=== PATIENT | male | born 1980 | race Caucasian/White ===

== ENCOUNTER 2020-05-20 10:14 | Emergency (ER) | payer SELFPAY ==
[2020-05-20 10:43] VITALS: BP 106/52; PULSE 88; RESP 16; TEMP 36.5; O2SAT 99
--- NOTE | 2020-05-20 10:57 | PC.NURSE ---
20/30 w/ B eyes, 20/40 w/ R eye, 20/50 w/ L eye
--- NOTE | 2020-05-20 11:51 | ED.GENADULT ---
HPI - General Adult General Chief complaint: Eye Problems <Omar Reyes PA-C - Last Filed: 05/20/20 11:58> Stated complaint: EYE SWELLING <Omar Reyes PA-C - Last Filed: 05/20/20 11:58> Time Seen by Provider: 05/20/20 10:19 <Omar Reyes PA-C - Last Filed: 05/20/20 11:58> Source: patient and family <Omar Reyes PA-C - Last Filed: 05/20/20 11:58> Mode of arrival: ambulatory <Omar Reyes PA-C - Last Filed: 05/20/20 11:58> Limitations: no limitations <Omar Reyes PA-C - Last Filed: 05/20/20 11:58> History of Present Illness HPI narrative: Patient is a 39-year-old male who presents with a few days duration of irritation the left eye started with conjunctival injection and now has some swelling of the eyelid patient notes irritation denies visual changes injury trauma or URI symptoms. Patient presents in no distress resting comfortably is not tried anything for relief. <Omar Reyes PA-C - Last Filed: 05/20/20 11:58> Related Data Allergies/adverse reactions: Allergies Allergy/AdvReac Type Severity Reaction Status Date / Time No Known Allergies Allergy Verified 05/20/20 10:45 <Omar Reyes PA-C - Last Filed: 05/20/20 11:58> Review of Systems Review of Systems: All systems reviewed & are unremarkable except as noted in HPI and below <Omar Reyes PA-C - Last Filed: 05/20/20 11:58> PMFSH Social History Social History: Social History Gender identity (if verbalized by the patient): Male <DANIS Larios Last Filed: 05/20/20 11:58> Exam Narrative: Exam Narrative: GENERAL: Well-appearing, well-nourished, and in no acute distress. HEAD: Normocephalic, atraumatic. EYES: PERRLA and EOMI. negative fluorescein uptake. No foreign bodies noted. Eye irrigated with saline. Left eye with conjunctival injection some matting patient also has some slight edema of the upper eyelid ENT: Nares clear, no rhinorrhea or epistaxis. Mucous membranes moist. Oropharynx without tonsillar hypertrophy exudate or other lesions. Bilateral TMs pearly whittington nonbulging EXTREMITIES: Normal range of motion. No edema. SKIN: Warm, dry, no rash. NEURO: No focal deficits. Alert and oriented x3. PSYCH: Normal mood and affect. <Omar Reyes PA-C - Last Filed: 05/20/20 11:58> Course Course Emergency Course: Patient in the room at this time aware of case findings treatment plan and diagnosis agreeing to follow-up as directed or to return if symptoms worsen or concerns <Omar Reyes PA-C - Last Filed: 05/20/20 11:58> Vital Signs Vital signs: Vital Signs Temperature 97.7 F 05/20/20 10:43 Pulse Rate 88 05/20/20 10:43 Respiratory Rate 16 05/20/20 10:43 Blood Pressure 106/52 L 05/20/20 10:43 Pulse Oximetry 99 05/20/20 10:43 Temperature 97.7 F 05/20/20 10:43 Pulse Rate 82 05/20/20 12:18 Respiratory Rate 20 05/20/20 12:18 Blood Pressure 106/52 L 05/20/20 10:43 Pulse Oximetry 100 05/20/20 12:18 <Omar Reyes PA-C - Last Filed: 05/20/20 11:58> Vital Signs Temperature 97.7 F 05/20/20 10:43 Pulse Rate 88 05/20/20 10:43 Respiratory Rate 16 05/20/20 10:43 Blood Pressure 106/52 L 05/20/20 10:43 Pulse Oximetry 99 05/20/20 10:43 Temperature 97.7 F 05/20/20 10:43 Pulse Rate 82 05/20/20 12:18 Respiratory Rate 20 05/20/20 12:18 Blood Pressure 106/52 L 05/20/20 10:43 Pulse Oximetry 100 05/20/20 12:18 <Trinh Novak MD - Last Filed: 05/20/20 12:24> Medical Decision Making MDM Narrative Medical decision making narrative: Patient with conjunctivitis will be discharged home provided with reasons to return patient felt appropriate for outpatient reevaluation provided with ophthalmology follow-up and reasons to return will be treated for conjunctivitis <Omar Reyes PA-C - Last Filed: 05/20/
[2020-05-20 12:18] VITALS: PULSE 82; RESP 20; O2SAT 100
== END 2020-05-20 12:19 | disposition home or self-care (01) ==
PROVIDERS: Emergency Provider Emergency Medicine
DX: H10.9 Unspecified conjunctivitis (principal)
CPT/HCPCS: 99283; A9270

== ENCOUNTER 2020-06-25 18:45 | Emergency (ER) | payer SELFPAY ==
--- NOTE | ~2020-06-25 | XR_ITS ---
EXAMINATION: XR finger 1st RT min 2V EXAM DATE: 06/25/2020 19:09 INDICATION: Initial encounter following injury, with pain of the right 1st finger. TECHNIQUE: Right 1st finger frontal, lateral and oblique projections obtained and reviewed. There is no prior study for comparison. FINDINGS: There are no acute right 1st finger fractures or dislocations identified. There is no subc utaneous gas. There is soft tissue swelling overlying the interphalangeal joint. There are no radio paque foreign bodies. IMPRESSION: 1. Right 1st finger exam without acute osseous findings. 2. Soft tissue swelling. Reviewed, dictated and finalized at location A.
[2020-06-25 18:46] VITALS: PULSE 103; RESP 18; TEMP 36.8; O2SAT 99
--- NOTE | 2020-06-25 19:17 | ED.UPPEXIN ---
HPI - Extremity Injury (Upper) General Chief Complaint: Extremity Injury, Upper <DANIS Fuentes Last Filed: 06/25/20 20:38> Stated Complaint: right thumb pain <DANIS Fuentes Last Filed: 06/25/20 20:38> Time Seen by Provider: 06/25/20 18:53 <DANIS Fuentes Last Filed: 06/25/20 20:38> Source: patient <DANIS Fuentes Last Filed: 06/25/20 20:38> Mode of arrival: ambulatory <DANIS Fuentes Last Filed: 06/25/20 20:38> Limitations: no limitations <DANIS Fuentes Last Filed: 06/25/20 20:38> History of Present Illness HPI narrative: This is a 39-year-old male that presents to the emergency department for right first finger injury sustained this morning. Reports he got his finger caught between 2 logs that he was trying to cut. Reports decreased range of motion in the thumb due to pain. Reports a laceration to the thumb. Reports he is up-to-date on tetanus. Denies numbness. <DANIS Fuentes Last Filed: 06/25/20 20:38> Related Data Home Medications: Home Medications Medication Instructions Recorded Confirmed No Home Medications 06/25/20 06/25/20 <DANIS Fuentes Last Filed: 06/25/20 20:38> Allergies/Adverse Reactions: Allergies Allergy/AdvReac Type Severity Reaction Status Date / Time No Known Allergies Allergy Verified 06/25/20 18:51 <DANIS Fuentes Last Filed: 06/25/20 20:38> Review of Systems Review of Systems: Narrative: CONSTITUTIONAL: Denies fever SKIN: Reports laceration MUSCULOSKELETAL: Reports joint pain, and myalgia. NEUROLOGIC: Denies numbness <DANIS Fuentes Last Filed: 06/25/20 20:38> All systems reviewed & are unremarkable except as noted in HPI and below <DANIS Fuentes Last Filed: 06/25/20 20:38> [facility] Past Medical History Medical History: Medical History (Updated 06/25/20 @ 20:38 by Zaida Dietrich PA-C) No active medical problems <Zaida Dietrich PA-C - Last Filed: 06/25/20 20:38> Social History Social History: Social History (Updated 06/25/20 @ 19:21 by Zaida Dietrich PA-C) Substance use: never Gender identity (if verbalized by the patient): Male <Zaida Dietrich PA-C - Last Filed: 06/25/20 20:38> Exam Narrative: Exam Narrative: GENERAL: Well-appearing, well-nourished, and in no acute distress. HEAD: Normocephalic, atraumatic. EYES: EOMI. EXTREMITIES: Decreased range of motion in the right first finger due to pain. Mild edema to the 1st interphalangeal joint with overlying superficial laceration well approximated on the dorsal surface SKIN: Warm, dry, no rash. NEURO: No focal deficits. Alert and oriented x3. PSYCH: Normal mood and affect <Zaida Dietrich PA-C - Last Filed: 06/25/20 20:38> Course Vital Signs Vital signs: Vital Signs Temperature 98.2 F 06/25/20 18:46 Pulse Rate 103 H 06/25/20 18:46 Respiratory Rate 18 06/25/20 18:46 Pulse Oximetry 99 06/25/20 18:46 Temperature 99.0 F 06/25/20 20:56 Pulse Rate 92 06/25/20 20:56 Respiratory Rate 20 06/25/20 20:56 Blood Pressure 128/78 06/25/20 20:56 Pulse Oximetry 100 06/25/20 20:56 <Zaida Dietrich PA-C - Last Filed: 06/25/20 20:38> Vital Signs Temperature 98.2 F 06/25/20 18:46 Pulse Rate 103 H 06/25/20 18:46 Respiratory Rate 18 06/25/20 18:46 Pulse Oximetry 99 06/25/20 18:46 Temperature 99.0 F 06/25/20 20:56 Pulse Rate 92 06/25/20 20:56 Respiratory Rate 20 06/25/20 20:56 Blood Pressure 128/78 06/25/20 20:56 Pulse Oximetry 100 06/25/20 20:56 <Rox Fontana MD - Last Filed: 06/25/20 21:54> Procedures Laceration Laceration 1: Date: 06/25/20 <Zaida Dietrich PA-C - Last Filed: 06/25/20 20:38> Time: 20:34 <Zaida Dietrich PA-C - Last Filed: 06/25/20 20:38> Site: hand <Zaida Dietrich PA-C - Last Filed: 06/25/20 20:38
--- NOTE | 2020-06-25 19:20 | PC.NURSE ---
pt updated that we are waiting on xray to result - ERP will notify him of his results. no current needs.
[2020-06-25 20:56] VITALS: BP 128/78; PULSE 92; RESP 20; TEMP 37.2; O2SAT 100
== END 2020-06-25 20:58 | disposition home or self-care (01) ==
PROVIDERS: Emergency Provider General Practice
DX: S67.01XA Crushing injury of right thumb, initial encounter (principal); S61.011A Laceration without foreign body of right thumb without damage to nail, initial encounter; W23.1XXA Caught, crushed, jammed, or pinched between stationary objects, initial encounter
CPT/HCPCS: 12001; 73140; 99283

== ENCOUNTER 2021-04-24 17:04 | Emergency (ER) | payer SELFPAY ==
--- NOTE | ~2021-04-24 | XR_ITS ---
EXAMINATION: XR hand RT min 3V DATE: 04/24/2021 17:32 INDICATION: Right hand injury after punching a wall. TECHNIQUE: Posteroanterior, oblique and lateral views of the right hand were obtained. COMPARISON: None. FINDINGS: Transverse extra articular fracture at the distal neck of the right fifth metacarpal (boxer's fractur e) with 40 degree palmar/radial angulation. No other acute fractures identified. 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 Joint spaces are normal. IMPRESSION: 1. 43 palmar/radial angulation of a nondisplaced boxer's fracture at the distal neck of the right fif th metacarpal. Reviewed, dictated and finalized at location A. IMPRESSION: 1. 43 palmar/radial angulation of a nondisplaced boxer's fracture at the distal neck of the right fifth metacarpal.
[2021-04-24 17:30] VITALS: BP 134/69; PULSE 68; RESP 16; TEMP 36.6; O2SAT 100
[2021-04-24 18:16] VITALS: BP 134/69; PULSE 68; RESP 16; TEMP 36.3; O2SAT 98
--- NOTE | 2021-04-24 18:19 | PC.NURSE ---
ERP Cr at bedside, pt refusing to have cr attempt to manipulate the finger into place. Cr will order splint and send to ortho.
--- NOTE | 2021-04-24 18:23 | ED.UPPEXIN ---
HPI - Extremity Injury (Upper) General Chief Complaint: Extremity Injury, Upper Stated Complaint: Fx hand or broke it Time Seen by Provider: 04/24/21 18:36 Source: patient Mode of arrival: ambulatory Limitations: no limitations History of Present Illness HPI narrative: Patient is a 40-year-old male who presents complaining of right hand pain. He reports punching a shed last week instead of punching his neighbor. He reports increased pain over the past week. Deformity and edema noted to right dorsal hand. Patient denies taking any [id number] pain medication prior to arrival. Patient denies other injuries. complaint: injury to: right Related Data Home Medications Medication Instructions Recorded Confirmed No Home Medications 06/25/20 06/25/20 Allergies Allergy/AdvReac Type Severity Reaction Status Date / Time No Known Allergies Allergy Verified 04/24/21 18:18 Review of Systems Review of Systems: Narrative: CONSTITUTIONAL: Denies fever, chills, or sweats. EYES: Denies visual changes, redness, or discharge. ENT: Denies rhinorrhea, congestion, sore throat, or otalgia. CARDIOVASCULAR: Denies chest pain, palpitations, or edema. RESPIRATORY: Denies cough or dyspnea. GASTROINTESTINAL: Denies abdominal pain, nausea, vomiting, or diarrhea. GENITOURINARY: Denies dysuria or hematuria. SKIN: Denies rash or itching. MUSCULOSKELETAL: Right hand pain NEUROLOGIC: Denies headache, numbness, dizziness, or weakness. PSYCHIATRIC: Denies anxiety or depression. PMFSH Past Medical History Medical History No active medical problems Social History Social History (Updated 04/24/21 @ 18:26 by ILSA Celaya) Smoking status: Former smoker Alcohol intake: current Alcohol use details: Occasional Substance use: never Gender identity (if verbalized by the patient): Male Sexual Orientation (if Verbalized by the Patient): Straight or Heterosexual Comments At the time of signature, I have reviewed and agree with nursing past medical, surgical, social, and family history unless otherwise noted. Please see nursing chart for further information. There is no relevant family history pertinent to the presenting complaint. Exam Narrative: Exam Narrative: GENERAL: Well-appearing, well-nourished, and in no acute distress. HEAD: Normocephalic, atraumatic. EYES: EOMI. No redness or drainage. Conjunctiva are normal. ENT: Mucous membranes pink and moist. CHEST: No respiratory distress. Clear to auscultation. HEART: Regular rate and rhythm. No murmur appreciated. Normal peripheral pulses. EXTREMITIES: Visible deformity to right fifth metacarpal. Edema noted. SKIN: Warm, dry, no rash. NEURO: No focal deficits. Alert and oriented x3. Gait steady. PSYCH: Normal affect. No signs of depression or anxiety. Course Course Emergency Course: Discussed with patient the need to attempt reduction lateral of metacarpal due to angulation. Patient declined. Discussed with patient that he could have loss of function in hand due to the length of time the injury occurred and angulation. Patient is aware and continues to decline attempted reduction. Discussed with Dr. Rose who agrees with plan of care for splinting and follow up with orthopedics. Vital Signs Vital signs: Vital Signs Temperature 36.6 C 04/24/21 17:30 Pulse Rate 68 04/24/21 17:30 Respiratory Rate 16 04/24/21 17:30 Blood Pressure 134/69 04/24/21 17:30 Pulse Oximetry 100 04/24/21 17:30 Temperature 36.3 C L 04/24/21 18:16 Pulse Rate 68 04/24/21 18:16 Respiratory Rate 16 04/24/21 18:16 Blood Pressure 134/69 04/24/21 18:16 Pulse Oximetry 98 04/24/21 18:16 Reviewed. Patient has been instructed to follow-up with his PCP regarding his blood pressure. Procedures Orthopedic Splinting/Casting Injury #1: Splinting/Casting Date: 04/24/21 Splinting/Casting Time: 18:5
--- NOTE | 2021-04-24 18:25 | PC.NURSE ---
MONICA Salinas, PUTTY REMOVER at bedside to apply cock up on right extremity.
== END 2021-04-24 19:44 | disposition home or self-care (01) ==
PROVIDERS: Emergency Provider Nurse Practitioner
DX: S62.366A Nondisplaced fracture of neck of fifth metacarpal bone, right hand, initial encounter for closed fracture (principal); Z87.891 Personal history of nicotine dependence; R03.0 Elevated blood-pressure reading, without diagnosis of hypertension; W22.09XA Striking against other stationary object, initial encounter
CPT/HCPCS: 29125; 73130; 99284

== ENCOUNTER 2022-01-21 18:03 | Emergency (ER) | payer SELFPAY ==
[2022-01-21] VITALS (8 sets, daily range): BP systolic 132; BP diastolic 72; PULSE 64–80; RESP 14–19; TEMP 36.4; O2SAT 97–100
--- NOTE | ~2022-01-21 | XR_ITS ---
EXAMINATION: XR chest 2V DATE: 01/21/2022 18:26 INDICATION: Chest pain and shortness of breath TECHNIQUE: PA and lateral views of the chest were obtained. COMPARISON: Chest radiograph dated 09/02/2015 FINDINGS: Lungs remain hyperexpanded but clear with no focal airspace opacities, pulmonary edema, pleural effus ion or pneumothorax. The cardiomediastinal silhouette is normal. Mild thoracic spondylosis with chron ic mild anterior wedging of a couple lower thoracic vertebra. IMPRESSION: 1. No acute cardiopulmonary disease. Reviewed, dictated and finalized at location A. UTER RECYCLING WORKER
--- NOTE | ~2022-01-21 | CT_ITS ---
EXAMINATION: CTA chest PE protocol DATE: 01/21/2022 20:34 INDICATION: Chest pain and shortness of breath. TECHNIQUE: Computed tomography (CT) pulmonary angiogram of the chest was performed with 100 mL Omnipa que-350 intravenous contrast. Additional 3D reconstructions utilizing coronal maximum intensity proje ction (MIP) were performed. Automated exposure control and iterative reconstruction technique were em ployed. The dose-length product was 207.15 mGy-cm. COMPARISON: None FINDINGS: Good contrast opacification of the pulmonary arteries. There is mild streak artifact from dense contr ast in the superior vena cava and right atrium. Mild scattered respiratory motion artifact which does not significantly limit evaluation. No pulmonary embolism. No pneumonia, pulmonary edema or pleural effusion. Heart size is normal. No pericardial effusion. 2.4 cm exophytic right renal cyst. Visualize d upper abdomen is otherwise unremarkable. Mild thoracic spondylosis. Likely physiologic mild anterio r wedging at T11 and T12. IMPRESSION: 1. No pulmonary embolism or other acute cardiopulmonary disease. Reviewed, dictated and finalized at location A. OR NET DEVELOPER
--- NOTE | 2022-01-21 18:17 | ECG_ITS ---
Measurements Intervals [place] Rate: 73 P: 66 TN: 143 QRS: 82 QRSD: 90 T: 69 QT: 357 QTc: 394 Interpretive Statements SINUS RHYTHM NORMAL ECG NO PREVIOUS ECG AVAILABLE FOR COMPARISON Electronically Signed On 01-22-2022 13:46:54 PRODUCT EXAMINER by Jimmie Diaz M.D.
[2022-01-21 19:05] LABS: Basophils Percent Auto 0.5 % (0.2-1.2); Eosinophils Absolute Auto 0.2 K/mm3 (0-0.3); Eosinophils Percent Auto 2.7 % (0-4.4); Hematocrit 38.7 % (42.0-52.0); Hemoglobin 13.6 g/dL (14.0-18.0); Immature Granulocyte Absolute 0.02 K/mm3 (0.00-0.031); Immature Granulocyte Percent A 0.3 % (0-0.5); Lymphocytes Absolute Auto 1.59 K/mm3 (0.9-3.2); Lymphocytes Percent Auto 26.7 % (18.3-44.2); Mean Corpuscular HGB Conc 35.1 g/dl (32-36); Mean Corpuscular Hemoglobin 30.2 pg (26-34); Mean Platelet Volume 10.7 fl (7.4-10.4); Monocytes Absolute Auto 0.7 K/mm3 (0.1-0.6); Monocytes Percent Auto 11.1 % (2.6-8.5); Neutrophils Absolute Auto 3.5 K/mm3 (1.3-6.7); Neutrophils Percent Auto 58.7 % (45.5-73.1); Platelet Count Result 171 k/mm3 (150-375); Red Cell Distribution Width 12.4 % (11.5-14.5)
[2022-01-21 19:45] LABS: INR 1.1; Prothrombin Time 13.9 Seconds (11.1-14.7)
[2022-01-21 19:46] LABS: Partial Thromboplastin Time 32.4 SECONDS (22.3-36.8)
[2022-01-21 19:48] LABS: Alanine Aminotransferase 15 U/L (4-50); Albumin Level 3.9 g/dL (3.5-5.1); Alkaline Phosphatase 56 U/L (38-126); Anion Gap 4 mmol/L (8-16); Aspartate Amino Transferase 21 U/L (17-59); Bilirubin,Total 0.4 mg/dL (0.2-1.3); Blood Urea Nitrogen 14 mg/dL (9-20); Calcium 8.7 mg/dL (8.4-10.2); Carbon Dioxide 30 mmol/L (22-30); Chloride 102 mmol/L (98-107); Estimated CRCL calculation 103 ml/min; Estimated Glomerular Filt Rate > 60; Glucose 107 mg/dL (65-110); Lipase 63 U/L (23-300); Potassium 3.7 mmol/L (3.4-5.0); Sodium 136 mmol/L (137-145)
[2022-01-21 19:49] LABS: D Dimer 0.59 ug/mL (<0.48)
[2022-01-21 20:00] LABS: Troponin I < 0.012 ng/mL (0.000-0.034)
[2022-01-21 20:14] LABS: SARS-CoV-2 RNA PCR Negative
--- NOTE | 2022-01-21 20:19 | ED.SOB ---
HPI - SOB/Dyspnea General Chief Complaint: Shortness of Breath/Dyspnea Stated Complaint: dyspnea Time Seen by Provider: 01/21/22 19:02 Source: patient and RN notes reviewed Mode of arrival: ambulatory Limitations: no limitations History of Present Illness HPI Narrative: This is 41 year old male who presents for substernal chest pain and shortness of breath. Patient states he woke up this morning feeling unwell. He states he is hoarse. He is having intermittent , nonradiating substernal chest pain. THis pain occurs mostly when he coughs. He also has intermittent shortness of breath and dry cough. He denies nausea, vomiting, fever, chills, headache, sore throat . He denies any sick contacts. Related Data Home Medications Medication Instructions Recorded Confirmed No Home Medications 06/25/20 06/25/20 Allergies Allergy/AdvReac Type Severity Reaction Status Date / Time No Known Allergies Allergy Verified 04/24/21 18:18 Review of Systems Review of Systems: All systems reviewed & are unremarkable except as noted in HPI and below PMFSH Past Medical History Medical History No active medical problems Social History Social History (Updated 04/24/21 @ 18:26 by Toya Salinas, ILSA) Smoking status: Former smoker Alcohol intake: current Alcohol use details: Occasional Substance use: never Gender identity (if verbalized by the patient): Male Sexual Orientation (if Verbalized by the Patient): Straight or Heterosexual Exam Narrative: GENERAL: Well-appearing, well-nourished, and in no acute distress. HEAD: Normocephalic, atraumatic EYES: PERRLA and EOMI, conjunctiva clear without discharge EARS: TM's clear bilaterally without erythema or dullness NOSE: Nares clear, no rhinorrhea or epistaxis THROAT:Mucous membranes moist, Oropharynx normal without erythema, exudate, peritonsillar swelling or fluctuance NECK: Supple, without lymphadenopathy or mass RESPIRATORY: No respiratory distress, Airway patent, Respirations non-labored, Clear to auscultation without rales, rhonchi or wheeze HEART: Regular rate and rhythm. No murmur heard. Normal peripheral pulses. ABDOMEN: Soft, nontender, nondistended, normal active bowel sounds. No masses. No rebound or guarding, No organomegaly. EXTREMITIES: No edema, normal strength with full range of motion. SKIN: Warm, dry, normal color without rash NEURO: Alert and oriented x3. CN 2-12 grossly intact. No focal deficits. PSYCH: Normal mood and affect. Course Reevaluation(s) Reevaluation #1: I Discussed with patient evaluation is unremarkable. Likely has viral URI. Date: 01/21/22 Time: 21:02 Vital Signs Vital signs: Vital Signs Temperature 97.6 F 01/21/22 18:12 Pulse Rate 80 01/21/22 18:12 Respiratory Rate 18 01/21/22 18:12 Blood Pressure 132/72 01/21/22 18:12 Pulse Oximetry 98 01/21/22 18:12 Temperature 97.6 F 01/21/22 18:12 Pulse Rate 74 01/21/22 20:55 Respiratory Rate 18 01/21/22 20:55 Blood Pressure 132/72 01/21/22 18:12 Pulse Oximetry 99 01/21/22 20:55 MDM - SOB/Dyspnea Lab Data Attestation: I reviewed the patient's lab results. Result diagrams: 01/21/22 18:56 01/21/22 19:31 Labs: Lab Results 01/21/22 01/21/22 01/21/22 Range/Units 18:56 18:56 19:31 WBC 6.0 (4.5-10.0) K/mm3 RBC 4.50 L (4.6-6.20) M/mm3 Hgb 13.6 L (14.0-18.0) g/dL Hct 38.7 L (42.0-52.0) % MCV 86.0 (80-100) fl MCH 30.2 (26-34) pg MCHC 35.1 (32-36) g/dl RDW 12.4 (11.5-14.5) % Plt Count 171 (150-375) k/mm3 MPV 10.7 H (7.4-10.4) fl Immature Gran % (Auto) 0.3 (0-0.5) % Neut % (Auto) 58.7 (45.5-73.1) % Lymph % (Auto) 26.7 (18.3-44.2) % [place] % (Auto) 11.1 H (2.6-8.5) % Eos % (Auto) 2.7 (0-4.4) % Baso % (Auto) 0.5 (0.2-1.2) % Lymph # (Auto) 1.59 (0.9-3.2) K/mm3 Mon
== END 2022-01-21 21:14 | disposition home or self-care (01) ==
PROVIDERS: Emergency Medicine; Emergency Provider General Practice
DX: Z20.822 Contact with and (suspected) exposure to COVID-19 (principal); J06.9 Acute upper respiratory infection, unspecified
CPT/HCPCS: 36415; 71046; 71275; 80053; 83690; 84484; 85025; 85380; 85610; 85730; 87081; 87804; 87880; 93005; 99284; C9803; Q9967; U0003; U0005

== ENCOUNTER 2024-08-02 12:02 | Emergency (ER) | payer SELFPAY ==
--- NOTE | ~2024-08-02 | CT_ITS ---
EXAMINATION:CT diagnostic chest wo con DATE: 08/02/2024 13:02 INDICATION: Rib pain. TECHNIQUE: Computed tomography (CT) of the chest was performed without intravenous contrast. Automate d exposure control and iterative reconstruction technique were employed. The dose-length product (DLP ) was 252.51 mGy-cm. COMPARISON: Chest CT 01/21/2022 FINDINGS: There is no pneumonia or pleural effusion. The heart size is normal. No pericardial effusio n. There is a 3.0 cm cyst in right kidney. There is mild thoracic spondylosis. There is mild chronic anterior wedging of T11-L1 vertebral bodies. There are old healed rib fractures bilaterally. IMPRESSION: 1. No acute rib fracture. Reviewed, dictated and finalized at location A. IMPRESSION: 1. No acute rib fracture.
[2024-08-02 12:10] VITALS: BP 115/73; PULSE 91; RESP 16; TEMP 36.3; O2SAT 98
[2024-08-02 12:32] LABS: Basophils Percent Auto 0.4 % (0.2-1.2); Eosinophils Absolute Auto 0.1 K/mm3 (0-0.3); Eosinophils Percent Auto 1.4 % (0-4.4); Hematocrit 38.9 % (42.0-52.0); Hemoglobin 13.4 g/dL (14.0-18.0); Immature Granulocyte Absolute 0.01 K/mm3 (0.00-0.031); Immature Granulocyte Percent A 0.1 % (0-0.5); Lymphocytes Absolute Auto 1.75 K/mm3 (0.9-3.2); Lymphocytes Percent Auto 25.3 % (18.3-44.2); Mean Corpuscular HGB Conc 34.4 g/dl (32-36); Mean Corpuscular Hemoglobin 30.5 pg (26-34); Mean Corpuscular Volume 88.4 fl (80-100); Mean Platelet Volume 11.1 fl (7.4-10.4); Monocytes Absolute Auto 0.4 K/mm3 (0.1-0.6); Monocytes Percent Auto 6.4 % (2.6-8.5); Neutrophils Absolute Auto 4.6 K/mm3 (1.3-6.7); Neutrophils Percent Auto 66.4 % (45.5-73.1); Platelet Count Result 148 k/mm3 (150-375); Red Cell Distribution Width 12.2 % (11.5-14.5); White Blood Count 6.9 K/mm3 (4.5-10.0)
--- NOTE | 2024-08-02 12:33 | PC.NURSE ---
pt made aware that urine sample is needed. pt unable to go at this time. decline straight cath. pt will hit call button when needs to go.
[2024-08-02 12:46] LABS: Alanine Aminotransferase 15 U/L (6-50); Albumin Level 3.9 g/dL (3.5-5.1); Alkaline Phosphatase 46 U/L (38-126); Anion Gap 11 mmol/L (4-12); Aspartate Amino Transferase 17 U/L (17-59); Bilirubin,Total 0.3 mg/dL (0.2-1.3); Blood Urea Nitrogen 18 mg/dL (9-20); Calcium 9.2 mg/dL (8.4-10.2); Carbon Dioxide 26 mmol/L (22-30); Chloride 103 mmol/L (98-107); Estimated CRCL calculation 72 ml/min; Estimated Glomerular Filt Rate > 60; Glucose 94 mg/dL (65-110); Lipase 85 U/L (23-300); Potassium 3.9 mmol/L (3.4-5.0); Sodium 140 mmol/L (137-145)
[2024-08-02] MEDS: KETOROLAC 30 MG/ML VIAL (*BKC) IV PUSH (12:56)
--- NOTE | 2024-08-02 13:31 | ED.ABDPAIN ---
HPI - Abdominal Pain General Chief Complaint: Abdominal Pain Stated Complaint: RLQ pain Time Seen by Provider: 08/02/24 12:18 Source: patient Mode of arrival: ambulatory Limitations: no limitations History of Present Illness HPI narrative: this is a 43-year-old male who presents to the ED with chief complaint of right-sided abdominal/rib pain over the past 2 days. No known injury. Denies fevers, chills, associated nausea, vomiting, diarrhea. Reports normal bowel movements. 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 States that he is doing a lot of physical labor and mowing on a daily basis but does not have any specific injuries that he can remember. Reports the pain really isn't getting worse but has not got better. It is worse with certain movements. Denies urinary symptoms such as dysuria, hematuria or frequency. Denies pain in the flanks. He is able to point to the inferior ribs where the pain hurts the most. Related Data Allergies Allergy/AdvReac Type Severity Reaction Status Date / Time No Known Allergies Allergy Verified 08/02/24 12:35 Review of Systems Review of Systems: All systems as dictated in [facility] Past Medical History Medical History No active medical problems Social History Social History (Updated 04/24/21 @ 18:26 by Toya Salinas, ILSA) Smoking status: Former smoker Alcohol intake: current Alcohol use details: Occasional Substance use: never Gender identity (if verbalized by the patient): Male Sexual Orientation (if Verbalized by the Patient): Straight or Heterosexual Exam Narrative: GENERAL: Well-appearing, well-nourished, and in no acute distress. HEAD: Normocephalic, atraumatic. EYES: PERRLA and EOMI. ENT: Nares clear, no rhinorrhea or epistaxis. Mucous membranes moist. Oropharynx without tonsillar hypertrophy exudate or other lesions. NECK: Supple. No adenopathy or masses. CHEST: No respiratory distress. Clear to auscultation. No wheezes rales or rhonchi. point tenderness to the right inferior most ribs. HEART: Regular rate and rhythm. No murmur heard. Normal peripheral pulses. ABDOMEN: Soft, grossly nontender, nondistended, normal active bowel sounds. negative flank tenderness bilaterally MSK: Normal range of motion. No edema. SKIN: Warm, dry, no rash. NEURO: Alert and oriented x4. No focal deficits. PSYCH: Normal mood and affect. Course Vital Signs Vital signs: Vital Signs Temperature 97.4 F L 08/02/24 12:10 Pulse Rate 91 08/02/24 12:10 Respiratory Rate 16 08/02/24 12:10 Blood Pressure 115/73 08/02/24 12:10 Pulse Oximetry 98 08/02/24 12:10 Oxygen Delivery Room Air 08/02/24 12:10 Temperature 97.4 F L 08/02/24 12:10 Pulse Rate 91 08/02/24 12:10 Respiratory Rate 16 08/02/24 12:10 Blood Pressure 115/73 08/02/24 12:10 Pulse Oximetry 98 08/02/24 12:10 Oxygen Delivery Room Air 08/02/24 12:10 MDM - Abdominal Pain MDM Narrative Medical decision making narrative: This is a 43-year-old male who presents to the ED with chief complaint of right lateral chest wall pain without known injury. Vitals are normal. Exam shows focal tenderness to the right lateral inferior most ribs. The area has point tenderness and there is no flank or abdominal tenderness. Lab work is unremarkable overall. Chest CT without con: IMPRESSION: 1. No acute rib fracture.. Patient was given Toradol here with moderate relief. Informed of the there was no rib fracture and may be consistent with pulled muscle or bruised rib. Pt will be discharged in stable condition. Return precautions given and supportive measures discussed. Pt is understanding and agreeable with plan for discharge and follow-up with PCP. Lab Data 08/02/24 12:26 08/02/24 12:26 Labs: Lab Results 08/02/24 Range/Units 12:26 WBC 6.9
== END 2024-08-02 14:25 | disposition home or self-care (01) ==
PROVIDERS: Emergency Provider Physician Assistant
DX: R07.89 Other chest pain (principal); Z87.891 Personal history of nicotine dependence
CPT/HCPCS: 36415; 71250; 80053; 83690; 85025; 96374; 99284; J1885

== ENCOUNTER 2024-11-20 16:58 | Emergency (ER) | payer SELFPAY ==
--- NOTE | ~2024-11-20 | XR_ITS ---
CHEST RADIOGRAPH, PA AND LATERAL CLINICAL HISTORY: cough, congestion . COMPARISON: 01/21/2022 TECHNIQUE: PA and lateral views of the chest. FINDINGS The cardiomediastinal silhouette is unremarkable. The lungs are clear. Visualized osseous structures and soft tissues are unremarkable. IMPRESSION: No focal infiltrate or effusion. If clinical suspicion persists, cross-sectional imaging (noncontrast enhanced CT examination of the c hest) is suggested for further evaluation. Reviewed, dictated and finalized at location A. CUTTER IMPRESSION: No focal infiltrate or effusion. If clinical suspicion persists, cross-sectional imaging (noncontrast enhanced C T examination of the chest) is suggested for further evaluation.
[2024-11-20 17:23] VITALS: BP 115/75; PULSE 95; RESP 17; TEMP 36.6; O2SAT 100
--- NOTE | 2024-11-20 17:26 | ED.URI ---
HPI - URI/Sore Throat General Chief Complaint: Upper Respiratory Infection <Zaida Dietrich PA-C - Last Filed: 11/21/24 14:48> Stated Complaint: COUGH,CONGESTION X2WK <DANIS Fuentes Last Filed: 11/21/24 14:48> Time Seen by Provider: 11/20/24 17:26 <Zaida Dietrich PA-C - Last Filed: 11/21/24 14:48> Focused HPI: This is a 44 year old male that presents to the ER for cough, congestion, shortness of breath. Ongoing over the last 2 weeks. Reports pain with coughing. GENERAL: Well-appearing, well-nourished, and in no acute distress. HEAD: Normocephalic, atraumatic. CHEST: Clear to auscultation. ?No respiratory distress. HEART: Regular rate and rhythm.? NEURO: ?Alert and oriented x3. Patient screened in triage and initial orders placed.? ?Additional care and disposition to be based upon?diagnostic testing and treatment. <Zaida Dietrich PA-C - Last Filed: 11/21/24 14:48> Source: patient <DANIS Jenkins Last Filed: 11/20/24 20:15> Mode of arrival: ambulatory <DANIS Jenkins Last Filed: 11/20/24 20:15> Limitations: no limitations <DANIS Jenkins Last Filed: 11/20/24 20:15> History of Present Illness HPI Narrative: Agree with triage note above <DANIS Jenkins Last Filed: 11/20/24 20:15> Related Data Allergies/Adverse Reactions: Allergies Allergy/AdvReac Type Severity Reaction Status Date / Time No Known Allergies Allergy Verified 08/02/24 12:35 <DANIS Fuentes Last Filed: 11/21/24 14:48> Review of Systems Review of Systems: All systems as dictated in HPI <DANIS Jenkins Last Filed: 11/20/24 20:15> PMFSH Past Medical History Medical History: Medical History No active medical problems <Zaida Dietrich PA-C - Last Filed: 11/21/24 14:48> Social History Social History: Social History (Updated 04/24/21 @ 18:26 by Toya Salinas, [facility]) Smoking status: Former smoker Alcohol intake: current Alcohol use details: Occasional Substance use: never Gender identity (if verbalized by the patient): Male Sexual Orientation (if Verbalized by the Patient): Straight or Heterosexual <Zaida Dietrich PA-C - Last Filed: 11/21/24 14:48> Exam Narrative: GENERAL: Well-appearing, well-nourished, and in no acute distress. HEAD: Normocephalic, atraumatic. EYES: PERRLA and EOMI. ENT: Nares clear, no rhinorrhea or epistaxis. Mucous membranes moist. Oropharynx without tonsillar hypertrophy exudate or other lesions. NECK: Supple. No adenopathy or masses. CHEST: No respiratory distress. Clear to auscultation. No wheezes rales or rhonchi HEART: Regular rate and rhythm. No murmur heard. Normal peripheral pulses. ABDOMEN: Soft, nontender, nondistended, normal active bowel sounds. MSK: Normal range of motion. No edema. SKIN: Warm, dry, no rash. NEURO: Alert and oriented x4. No focal deficits. PSYCH: Normal mood and affect. <Clark Anton PA-C - Last Filed: 11/20/24 20:15> Course Vital Signs Vital signs: Vital Signs Temperature 97.8 F 11/20/24 17:23 Pulse Rate 95 11/20/24 17:23 Respiratory Rate 17 11/20/24 17:23 Blood Pressure 115/75 11/20/24 17:23 Pulse Oximetry 100 11/20/24 17:23 Oxygen Delivery Room Air 11/20/24 17:23 Temperature 98.4 F 11/20/24 21:14 Pulse Rate 77 11/20/24 21:14 Respiratory Rate 16 11/20/24 21:14 Blood Pressure 117/71 11/20/24 21:14 Pulse Oximetry 98 11/20/24 21:14 Oxygen Delivery Autopap 11/20/24 18:03 <Zaida Dietrich PA-C - Last Filed: 11/21/24 14:48> Vital Signs Temperature 97.8 F 11/20/24 17:23 Pulse Rate 95 11/20/24 17:23 Respiratory Rate 17 11/20/24 17:23 Blood Pressure 115/75 11/20/24 17:23 Pulse Oximetry 100 11/20/24 17:23 Oxygen Delivery Room Air 11/20/24 17:23 Temperature 98.4 F 11/20/24 21:14 Pulse Rate 77 11/20/24 21:14 Respiratory Rate 16 11/20/24 21:14 Blood Pressure 117/71 11/20/24 21:14 Pulse Oximetry 98 11/20/24 21:14 Oxygen Delivery Autopap 11/20/24 18:03 <Clark Anton PA-C - Last Filed: 11/20/24 20:15> MDM - URI/Sore Throat MDM Narrative Medical decision making narrative: This is a 44-year-old male who presents for upper respiratory infection symptoms. Vitals are normal. Exam is benign. Viral swabs positive for influenza A. Chest x-ray is negative. Patient is not a candidate for Tamiflu today. Discussed supportive measures for home and symptomatic treatment. Rx for dextromethorphan and Tessalon Perles. He will be discharged in stable condition with return precautions given. He is understandable agreeable with plan for discharge and follow-up with PCP. <Clark Anton PA-C - Last Filed: 11/20/24 20:15> Differential Diagnosis Differential diagnosis: Likely upper respiratory infection, otitis media, sinusitis, viral infection, bronchitis, influenza and pharyngitis <Clark Anton PA-C - Last Filed: 11/20/24 20:15> Lab Data Labs: Lab Results 11/20/24 Range/Units 17:28 Influenza A (RT-PCR) Positive A (Negative) Influenza B (RT-PCR) Negative (Negative) RSV (RT-PCR) Negative (Negative) SARS-CoV-2 RNA (RT-PCR) Negative (Negative) <Zaida Dietrich PA-C - Last Filed: 11/21/24 14:48> Lab Results 11/20/24 Range/Units 17:28 Influenza A (RT-PCR) Positive A (Negative) Influenza B (RT-PCR) Negative (Negative) RSV (RT-PCR) Negative (Negative) SARS-CoV-2 RNA (RT-PCR) Negative (Negative) <Clark Anton PA-C - Last Filed: 11/20/24 20:15> Imaging Data Radiologist's impression: ITS Impressions Chest X-Ray 11/20/24 18:27 IMPRESSION: No focal infiltrate or effusion. If clinical suspicion persists, cross-sectional imaging (noncontrast enhanced CT examination of the chest) is suggested for further evaluation. <Zaida Dietrich PA-C - Last Filed: 11/21/24 14:48> Critical Care Time Critical Care Time Critical Care Time: No <DANIS Fuentes Last Filed: 11/21/24 14:48> Discharge Plan Discharge Clinical Impression: Influenza <DANIS Fuentes Last Filed: 11/21/24 14:48> Patient Disposition: Home, Self-Care <DANIS Fuentes Last Filed: 11/21/24 14:48> Condition: Stable <DANIS Fuentes Last Filed: 11/21/24 14:48> Instructions: Antibiotic Form, Influenza (ED) <DANIS Fuentes Last Filed: 11/21/24 14:48> Additional Instructions: Your seen in the ER flu-like symptoms. Your flu test is positive. Please take cough medicines as prescribed and follow-up PCP. If you have any new or worsening symptoms please return to the ER for further evaluation. <Zaida Dietrich PA-C - Last Filed: 11/21/24 14:48> Patient Language: Romansh <DANIS Fuentes Last Filed: 11/21/24 14:48> Prescriptions: New guaifenesin 1,200 mg tablet extended release 12hr 1,200 mg PO BID Qty: 30 0RF benzonatate 100 mg capsule 100 mg PO BID PRN (Reason: cough) Qty: 30 0RF No Action naproxen 500 mg tablet,delayed release (DR/EC) 500 mg PO BID PRN (Reason: pain) Qty: 30 0RF <DANIS Fuentes Filed: 11/21/24 14:48> Follow-up/Referrals: PHYSICIAN,ENAMEL FINISHER [Primary Care Provider] - <Zaida Dietrich PA-C - Last Filed: 11/21/24 14:48> Time of Disposition: 20:15 <Zaida Dietrich PA-C - Last Filed: 11/21/24 14:48> 20:15 <Clark Anton PA-C - Last Filed: 11/20/24 20:15>
--- NOTE | 2024-11-20 17:27 | ECG_ITS ---
Test Date: 2024-11-20 18:05:47 Measurements Intervals Leslie Rate: 90 P: 106 NC: 130 QRS: 87 QRSD: 92 T: 81 QT: 368 QTc: 451 Interpretive Statements SINUS RHYTHM BASELINE ARTIFACT LIMITS INTERPRETATION No previous ECG available for comparison Electronically Signed On 11-22-2024 17:13:32 REFINERY OPERATOR COKING by Shilpi Donahue M.D.
[2024-11-20 18:03] VITALS: O2SAT 99
[2024-11-20 18:09] LABS: Influenza A QL RT-PCR Positive (Negative); Influenza B QL RT-PCR Negative (Negative); RSV RNA, RT-PCR Negative (Negative); SARS-CoV-2 RNA PCR Negative (Negative)
[2024-11-20 21:14] VITALS: BP 117/71; PULSE 77; RESP 16; TEMP 36.9; O2SAT 98
--- OUTSIDE RECORDS SUMMARY | 2024-11-27 03:47 | XMS_ITS | Encounter Summary ---
Author Organization [facility] Address [address] [place] [address]. [place] [address] [place] [address] Care Team Providers Care Puppy Walker Name Role Phone Unavailable Primary Care Provider Unavailabl e Encounter Details Date Type Department Care Team (Late st Contact Info) Description 07/06/2011 Abstract [facility] Emergency Room [address] [place] [address] Franky Sam MD [address] [place] [address] Social History Tobacco Use Types Packs/Day Years Used Date Smoking Tobacco: Never Assessed Sex and Gender Information Value Date Recorded Sex Assigned at Not on file Legal Sex Male 5:00 PM CDT Gender Identity Not on file Sexual Orientation Not on file documented as of this encounter Plan of Treatment Not on file documented as of this encounter Visit Diagnoses Diagnosis Open wound of finger Open wound of finger(s) , without mention of complication documented in this encounter
--- OUTSIDE RECORDS SUMMARY | 2024-11-27 03:47 | XMS_ITS | Encounter Summary ---
Author Organization [facility] Address [address] [place] [address]. [place], [place] [id number] [place] [address] Care Team Providers Care Heel Brusher Name Role Phone Unavailable Primary Care Provider Unavailabl e Encounter Details Date Type Department Care Team (Late st Contact Info) Description 07/29/2001 Abstract [facility] [address] [place] [address] , Generic Conversion, Social History Tobacco Use Types Packs/Day Years Used Date Smoking Tobacco: Never Assessed Sex and Gender Information Value Date Recorded Sex Assigned at Not on file Legal Sex Male 5:00 PM CDT Gender Identity Not on file Sexual Orientation Not on file documented as of this encounter Plan of Treatment Not on file documented as of this encounter Visit Diagnoses Not on filedocumented in this encounter
--- OUTSIDE RECORDS SUMMARY | 2024-11-27 03:47 | XMS_ITS | Encounter Summary ---
Author Organization [facility] Address [address] [place] [address]. [place], [place] [address] [place] [address] Care Team Providers Care Consulting Business Developer Name Role Phone Unavailable Primary Care Provider Unavailabl e Encounter Details Date Type Department Care Team (Late st Contact Info) Description 06/13/2001 Abstract [facility] [address] [place] [address] , Generic Conversion, Social History Tobacco Use [...]
--- OUTSIDE RECORDS SUMMARY | 2024-11-27 03:47 | XMS_ITS | Clinical Summary ---
Author Organization [facility] Address [address] [place] [address]. [place] [address] [place] [address] Care Team Providers Care Woodyard Operator Name Role Phone Unavailable Primary Care Provider Unavailabl e Social History Tobacco Use Types Packs/Day Years Used Date Smoking Tobacco: Never Assessed Sex and Gender Information Value Date Recorded Sex Assigned at Not on file Legal Sex Male 5:00 PM CDT Gender Identity Not on file Sexual Orientation Not on file Plan of Treatment Health Maintenance Due Date Last Done Comments Colorectal Cancer Screening Colonoscopy (10 Years) 1978 Annual Physical 1981 Hepatitis C 1996 DTaP, Tdap and Td Vaccines ( 1 - Tdap) 1997 Hepatitis B Vaccines (1 of 3 - 19+ 3-dose series) 1997 COVID-19 Vaccine (2023-2 5 season) 2024 Influenza Adult (#1) 2024 HPV Vaccines Aged Out No longer eligi ble based on patient's age to complete this topic Meningococcal Vaccine Aged Out No jessi marley eligible based on patient's age to complete this topic Pneumococcal Vaccine: Pediat rics (0 to 5 Years) and At-Risk Patients (6 to 64 Years) Aged Out No longer eligible b ased on patient's age to complete this topic RSV Immunizations Under 20 Months Aged Out No longer eligible based on patient's age to complete this topic
--- OUTSIDE RECORDS SUMMARY | 2024-11-27 03:47 | XMS_ITS | Encounter Summary ---
Author Organization [facility] Address [address] [place] [address]. [place], [place] [address] [place] [address] Care Team Providers Care Machine Shop Helper Name Role Phone Unavailable Primary Care Provider Unavailabl e Encounter Details Date Type Department Care Team (Late st Contact Info) Description 07/28/2001 Abstract [facility] [address] [place] [address] , Generic Conversion, Social History Tobacco Use [...]
--- OUTSIDE RECORDS SUMMARY | 2024-11-27 06:21 | XMS_ITS | Encounter Summary ---
Author Organization [facility] Address [address] [place] [address]. [place] [address] [place] [address] Care Team Providers Care Spout Liner Helper Name Role Phone Unavailable Primary Care Provider Unavailabl e Encounter Details Date Type Department Care Team (Late st Contact Info) Description 07/06/[address] [facility] Emergency Room [address] [place] [address] Franky Sam MD [address] [place] [address] Social History Tobacco Use Types [...]
--- OUTSIDE RECORDS SUMMARY | 2024-11-27 06:21 | XMS_ITS | Encounter Summary ---
Author Organization [facility] Address [address] [place] [address]. [place], [place] [address] [place] [address] Care Team Providers Care Field Mechanic Name Role Phone Unavailable Primary Care Provider Unavailabl e Encounter Details Date Type Department Care Team (Late st Contact Info) Description 07/28/2001 Abstract [facility] [address] [place] [address] , Generic Conversion, Social History Tobacco Use [...]
--- OUTSIDE RECORDS SUMMARY | 2024-11-27 06:21 | XMS_ITS | Encounter Summary ---
Author Organization [facility] [place] [facility] Address [address] [place] [address]. [place], [place] [address] [place] [address] Care Team Providers Care Personal Carer Name Role Phone Unavailable Primary Care Provider Unavailabl e Encounter Details Date Type Department Care Team (Late st Contact Info) Description 06/13/2001 Abstract [facility] [address] [place] [address] , Generic Conversion, Social History Tobacco Use [...]
--- OUTSIDE RECORDS SUMMARY | 2024-11-27 06:21 | XMS_ITS | Clinical Summary ---
Author Organization [facility] Address [address] [place] [address]. [place] [address] [place] [address] Care Team Providers Care Etl Informatica Developer Name Role Phone Unavailable Primary Care [...]
--- OUTSIDE RECORDS SUMMARY | 2024-11-27 06:21 | XMS_ITS | Encounter Summary ---
Author Organization [facility] Address [address] [place] [address]. [place], [place] [id number] [place] [address] Care Team Providers Care Physical Therapy Assistant Instructor Name Role Phone Unavailable Primary Care Provider Unavailabl e Encounter Details Date Type Department Care Team (Late st Contact Info) Description 07/29/2001 Abstract [facility] [address] [place] [address] , Generic Conversion, Social History Tobacco Use [...]
== END 2024-11-20 21:15 | disposition home or self-care (01) ==
PROVIDERS: Physician Assistant; Emergency Provider Physician Assistant
DX: J10.1 Influenza due to other identified influenza virus with other respiratory manifestations (principal); Z20.822 Contact with and (suspected) exposure to COVID-19; Z87.891 Personal history of nicotine dependence
CPT/HCPCS: 71046; 87637; 93005; 99283